=== PATIENT | female | born 1960 | race African-American/Black ===

== ENCOUNTER → 2021-03-23 | Outpatient (CLI) | payer OTHER ==
[2014-09-03 07:58] VITALS: BP 106/75
[~2021-03-23] MED LIST: ACET500T68 PO; HYDR12.575 PO; LOSA100T14 PO; METO-239 PO; MV,C400T2 PO; OLME20TA17 PO; PANT40TA77 PO; RANI150C PO; TRAM50TA PO; VALS40TA2 PO
--- NOTE | 2021-03-23 16:38 | RAD ---
EXAM: Pelvis and left hip, 2 views. HISTORY: Pain. COMPARISON: None. FINDINGS: A frontal view the pelvis and frog-leg view the left hip are obtained. There is no fracture , dislocation or subluxation. The femoral heads are normal in configuration. IMPRESSION: No acute osseous finding. Electronically signed by: Iris Luciano MD (03/23/2021 4:36 PM) [id number]
--- NOTE | 2021-03-26 11:01 | RAD ---
EXAM: Pelvis and left hip, 2 views. HISTORY: Pain. COMPARISON: None. FINDINGS: A frontal view the pelvis and frog-leg view the left hip are obtained. There is no fracture, dislocation or subluxation. The femoral heads are normal in configuration. IMPRESSION: No acute osseous finding. MTDD
== END ==
LOC: PMGORTHO 10:00
PROVIDERS: ATTEND Physician Assistant
DX: M25.552 Pain in left hip (principal)
CPT/HCPCS: 73501

== ENCOUNTER → 2021-04-27 | Outpatient (CLI) | payer BC ==
[2014-09-03 07:58] VITALS: BP 106/75
--- NOTE | 2021-04-27 12:27 | PDOC1 ---
INITIAL PAIN CONSULT DATE OF SERVICE: DOS: DATE: 04/27/21 TIME: 12:21 CHIEF COMPLAINT: Chief Complaint: Low back and left lower extremity pain HISTORY OF PRESENT ILLNESS: 60-year-old female presents with history of pain low back left lower extremity since early 2020 not the result of any specific injury or accident that she is aware of but she has been increased pain in the low back left lower extremity posterior gluteus posterior thigh posterior calf and lateral calf on the left side worse with walking standing changing position specially getting up from seated position and lifting her left leg getting in and out of the car is become more difficult as well patient reports no overt motor loss but significant fatigability of the left lower extremity with these activities. Patient reports it wakes her from sleep least 3-4 times a night does not affect her bowel bladder control or ability to walk when she is up and around she is does fairly well but changing positions and lifting left leg is becoming more more noticeable and more painful patient reports the pain is a sharp shooting change during the day worse with activity better with resting intermittent intensity radiating into the left lower extremity as described. Patient reports that she has had physical therapy in March of this year only 2 sessions which were not helping the pain actually made it somewhat worse also trigger point injections with her primary physician but this has been 11 years ago which were helpful patient reports her disability rating from 0-10 10 being the worst is a 5 responsibilities recreation and sexual behavior for social activity 6 with occupational activity, 2 with self-care and 1 with life support activities. Patient had plain films of the lumbar spine showing degenerative endplate remodeling with the space narrowing and facet arthropathy predominantly at L5- S1. Left hip x-ray shows no acute osseous findings. PAST MEDICAL HISTORY: PMH: Hypertension, esophageal reflux, sickle cell trait PREVIOUS SURGERIES: Past Surgical Hx: Lumbar laminectomy normal hysterectomy, tonsillectomy, left wrist surgery CURRENT MEDICATIONS: Current Meds: Active Scripts Medications Dose Route/Sig Max Daily Dose Days Date Category Tramadol Hcl 50 Mg Tablet 50 Mg PO DAILY PRN 04/27/21 Reported Acetaminophen 500 Mg Tablet 1 Tab PO PRN Q6HRS PRN 15 04/27/21 Reported Hydrochlorothiazide Capsule (Hydrochlorothiazide) 12.5 Mg Capsule 12.5 Mg PO DAILY 04/27/21 Reported Losartan Potassium 100 Mg Tablet 100 Mg PO DAILY 04/27/21 Reported Estroven Max Strength Caplet (Mv,Ca,Min/Fa/Herbal No.157) 400 Mcg Tablet 400 Mcg PO BID 09/03/14 Reported Pantoprazole Sodium (Pantoprazole Sodium) 40 Mg Tablet.dr 40 Mg PO HS 09/03/14 Reported ALLERGIES; Allergies: Coded Allergies: Penicillins (Verified Allergy, Intermediate, 04/27/21) Uncoded Allergies: fruit (Allergy, Intermediate, itching, 04/27/21) seafood (Allergy, Intermediate, Itching, 04/27/21) facial swelling FAMILY HISTORY: Family Hx: No major medical conditions that she is aware of SOCIAL HISTORY: Social Hx: Patient does not cipriano alcohol does not smoke not use any illegal illicit recreational drugs is lives with her spouse lives locally in [facility] REVIEW OF SYSTEMS: ROS: Positive for those items mentioned in history of present illness, all systems are reviewed, otherwise negative ,and are complete full and well-documented on patient's chart. PHYSICAL EXAM: VS: Blood pressure is 134/107 pulse 68 respirations 16 temperature 98.1 F height is 5 feet 2 inches weight is 204 pounds PE: PHYSICAL EXAMINATION: GENERAL: The patient is awake, alert, oriented, appropriate, very pleasant in demeanor. HEENT: Shows normocephalic, atraumatic. Extraocular movements are intact and symmetrical. Oral cavity: Mucous membranes moist and pink. Dentition is intact. NECK: Shows anterior throat supple without palpable lymphadenopathy noted. Swallow reflex symmetrical. CHEST: Shows normal on inspection. Breath sounds are clear bilaterally, no rales rhonchi or wheezes auscultated. HEART: Shows S1, S2 clear. No murmurs auscultated. ABDOMEN: Soft, nontender, nondistended, obese. No palpable organomegaly is noted. BACK: Shows spine grossly in the midline. Normal-appearing cervical lordotic curvature. There is slightly increased thoracic kyphosis, some minor flattening of the lumbar lordotic curvature. Lumbar paraspinous muscles show symmetrical on inspection, on palpation shows some moderate tenderness diffusely throughout the upper, middle and lower distribution of the paraspinous muscles bilaterally and also into the lower thoracic paraspinous musculature, firm and tender, but without specific trigger points, without radiation of pain. The patient has good rotational motion of the lumbar spine, both laterally as well as extension and flexion without significant difficulty. No tenderness over the spinous processes, sacrum or sacroiliac regions. EXTREMITIES: Lower extremities show deep tendon reflexes 2+ in the patellar and tendo calcaneus tendons. Motor exam is 5 on a scale of 5 with right dorsiflexion, extension, quadriceps and hamstring flexion and 5/5 on the left. Peripheral pulses are 1+ posterior tibial. No peripheral edema is noted bilaterally. Lower extremities are warm and dry to touch, equal in color and appearance. Straight leg raise noted to be positive on the left at approximate 45 degrees decreased with knee flexion, right side is negative. Gaenslen's and Rob's maneuvers are negative bilateral as well. The patient is able to stand, stand on her toes without significant difficulty or loss of balance, walks with a normal-appearing gait does not appear to favor the right or left lower extremity significantly is not use any assistive devices to ambulate such as canes or walkers. SKIN: Shows warm and dry, good turgor. No edema. No sores, rashes or bruising throughout. IMPRESSION: Impression: 60-year-old female with approximate 6-month history increasing pain low back left lower extremity radicular fashion Plain films lumbar spine as noted Hypertension Plan: Options were discussed with patient including conservative medical management is continued physical therapies interventional techniques. Patient is wanting to follow most conservative path at this time we will try a Medrol Dosepak patient was given instructions as well as side effects beware with the medication also order MRI scan lumbar spine to better differentiate any pathology that could be explaining the radicular pain not clear from the plain films. Patient will follow up after MRI scan and we will discuss results and proceed at that time. EVER HURST MD Apr 27, 2021 12:27
== END | disposition home or self-care (01) ==
LOC: PNCL 10:21
PROVIDERS: ATTEND Anesthesiology
DX: M54.5 Low back pain (principal); M79.605 Pain in left leg; I10 Essential (primary) hypertension; K21.9 Gastro-esophageal reflux disease without esophagitis; Z90.710 Acquired absence of both cervix and uterus; Z98.890 Other specified postprocedural states; Z79.899 Other long term (current) drug therapy
CPT/HCPCS: G0463

== ENCOUNTER → 2021-05-03 | Outpatient (CLI) | payer BC ==
[2014-09-03 07:58] VITALS: BP 106/75
--- NOTE | 2021-05-03 14:37 | KCIC ---
MR LUMBAR SPINE [id number] History: Reason: LUMBAR RADICULOPATHY / Spl. Instructions: / History: Left hip and leg pain in recen t mths. Prior surgery over 10 yrs ago. Technique: Multiplanar, multi sequential MR imaging was performed of the lumbar spine. Comparison: September 05, 2010 Findings: Normal vertebral body height and alignment. No fracture. Increased or signal within the right L5 pedi debbie. Conus terminates at the normal location. No evidence of nerve root clumping. L1-L2: Minimal disc bulge. No canal or neuroforaminal narrowing. L2-L3: No canal or neuroforaminal narrowing. Mild facet arthropathy. L3-L4: Small disc bulge. Mild facet arthropathy. No canal narrowing. No neuroforaminal narrowing. L4-L5: A based disc bulge. Subacute recess narrowing, right greater than left. Moderate to advanced facet arthropathy. No canal narrowing. Moderate to severe left and mild right neuroforaminal narrowin g. L5-S1: Small disc bulge. Moderate facet arthropathy. No canal narrowing. Mild bilateral neuroforamin al narrowing. When compared the prior examination the degenerative findings are progressed compared to 2009. Impression: 1. Multilevel lumbar spondylosis most prominent L4-L5 with subarticular recess narrowing most promin ent on the right. 2. Neuroforaminal narrowing most prominent left L4-5. 3. Increased signal within the right L5 pedicle, may relate to degenerative changes or stress reacti on. Electronically signed by: Fredi Llanos DO (05/03/2021 2:34 PM) [id number]
== END | disposition home or self-care (01) ==
LOC: KCIC MRI 10:52
PROVIDERS: ATTEND Anesthesiology
DX: M47.26 Other spondylosis with radiculopathy, lumbar region (principal); M48.061 Spinal stenosis, lumbar region without neurogenic claudication; K21.9 Gastro-esophageal reflux disease without esophagitis; F32.9 Major depressive disorder, single episode, unspecified; I10 Essential (primary) hypertension; Z79.899 Other long term (current) drug therapy; Z98.890 Other specified postprocedural states; Z72.89 Other problems related to lifestyle; Z87.891 Personal history of nicotine dependence; Z88.0 Allergy status to penicillin; Z88.8 Allergy status to other drugs, medicaments and biological substances
CPT/HCPCS: 72148

== ENCOUNTER → 2021-05-17 | Outpatient (CLI) | payer BC ==
[2014-09-03 07:58] VITALS: BP 106/75
[~2021-05-17] MED LIST changes: +IOHEXOL 180 MG/ML 10 ML VIAL. ONE; +methylPREDNISolone ACETATE 80 MG/ML VIAL. ONE
--- NOTE | 2021-05-17 15:31 | PDOC ---
Progress Note - Pain Clinic Date of Service: DOS: DATE: 05/17/21 TIME: 15:27 Diagnosis: Dx: Lumbar radiculopathy with lumbar degenerative disc disease and lumbar postlaminectomy syndrome History or Present Illness: HPI: 60-year-old female returns for follow-up status post MRI scan which we discussed with her today with new findings of small disc bulge L3-4 with mild facet arthropathy L4-5 shows a broad-based disc bulge with subacute region recess narrowing right greater than left with moderate to advanced facet arthropathy no canal narrowing but moderate to severe left and mild right neuroforaminal narrowing L5-S1 shows small disc bulge with moderate facet arthropathy without canal narrowing with mild bilateral neuroforaminal narrowing. Comparison made to 2009 shows degenerative findings progressed. Patient reports no significant pain low back and left lower extremity posterior gluteus posterior lateral thigh low anterior thigh anteromedial thigh medial lower leg and lateral lower leg as well as in the calf on the left side patient reports this is worse with walking standing changing positions better with sitting or laying down but is waking her from sleep about once every 2 hours or so patient reports no loss of motor function no bowel or bladder incontinence patient describes pain as aching and dull in the back stabbing and cramping shooting and radiating in the left lower extremity rated as a 7 on scale 10 is worse over the past week for an average 3 its least is a 4 today. Patient had elevated blood pressure after 2 melanie surements today with diastolic over 100 and we discussed the importance of following up with her primary care physician regarding this and she is taking losartan and hydrochlorothiazide and this may be worth a discussion with her primary physician for adjustment oral substitution. Patient understands and agrees. Physical Exam: VS: Blood pressure is 144/106 pulse 79 respirations 18 temperature 98.8 F height 5 feet 2 inches weight is 202 pounds PE: PHYSICAL EXAMINATION: GENERAL: The patient is awake, alert, oriented, appropriate, very pleasant in demeanor HEENT: Shows normocephalic, atraumatic. Extraocular movements are intact and symmetrical. Oral cavity: Mucous membranes moist and pink. Dentition is intact. NECK: Shows anterior throat supple without palpable lymphadenopathy noted. Swallow reflex symmetrical. CHEST: Shows normal on inspection. Breath sounds are clear bilaterally, distant but no rales or rhonchi. HEART: Shows S1, S2 clear. No murmurs auscultated. ABDOMEN: Soft, nontender, nondistended, obese. No palpable organomegaly is noted. BACK: Shows spine grossly in the midline. Normal-appearing cervical lordotic curvature. There is slightly increased thoracic kyphosis, some flattening of the lumbar lordotic curvature with well-healed midline surgical scar noted once again. Lumbar paraspinous muscles show symmetrical on inspection, on palpation shows some moderate tenderness diffusely throughout the upper, middle and lower distribution of the paraspinous muscles without specific trigger points, without radiation of pain. The patient has good rotational motion of the lumbar spine, both laterally as well as extension and flexion without significant difficulty. EXTREMITIES: Lower extremities show deep tendon reflexes 2+ in the patellar and tendo calcaneus tendons. Motor exam is 5 on a scale of 5 with right dorsiflex ion, extension, quadriceps and hamstring flexion and 5/5 on the left. Peripheral pulses are 1 posterior tibial. No peripheral edema is noted bilaterally. Lower extremities are warm and dry to touch, equal in color and appearance. SKIN: Shows warm and dry, good turgor. No edema. No sores, rashes or bruising throughout. Procedure: Procedure: Options discussed with the patient. Patient chart reviews her current medication regimen updated current review of systems updated today as well. We will proceed with a lumbar epidural steroid injection today with fluoroscopic guidance. Risks were discussed including but not limited to: Bleeding, infection, possibility of epidural hematoma and subsequent neurological compromise, dural puncture, headaches, spinal cord and/or nerve damage, side effects of steroid medication, and poor results regarding pain control. Patient understands and wished to proceed. Patient will return to the clinic in approximately 2 weeks for follow-up, was counseled as to return appointment, activity level, and side effects to be aware of. Medication Injected: Med Injected: Procedure is lumbar epidural steroid injection under local anesthetic using sterile prep and drape at the L4-5 level using C-arm fluoroscopic guidance in both AP and lateral views medications injected is 120 mg Depo-Medrol +10mL preservative-free normal saline and 2 mL contrast- condition at discharge is stable patient tolerated procedure well had no complications. Condition at Discharge: Condition at Discharge: Condition at discharge stable, patient already the procedure well and had no complications. EVER HURST MD May 17, 2021 15:31
--- NOTE | 2021-05-17 15:31 | PDOC4 ---
Procedure Note: ICD 10 Code: ICD 10 Code: M54.16 M 96.1 M51.36 Procedure Note: Patient was consented for lumbar epidural steroid injection with fluoroscopic guidance. Risks were discussed including but not limited to: Bleeding, infection, possibility of epidural hematoma and subsequent neurological compromise, dural puncture, headaches, spinal cord and/or nerve damage, side effects of steroid medication, and poor results regarding pain control. Patient understands and wished to proceed. Procedure is lumbar epidural steroid injection under local anesthetic using ster ile prep and drape at the L4-5 level using C-arm fluoroscopic guidance in both AP and lateral views medications injected is 120 mg Depo-Medrol +10mL preservative-free normal saline and 2 mL contrast- condition at discharge is stable patient tolerated procedure well had no complications. EVER HURST MD May 17, 2021 15:31
== END | disposition home or self-care (01) ==
LOC: PNCL 14:15
PROVIDERS: ATTEND Anesthesiology
DX: M51.16 Intervertebral disc disorders with radiculopathy, lumbar region (principal); M96.1 Postlaminectomy syndrome, not elsewhere classified; K21.9 Gastro-esophageal reflux disease without esophagitis; F32.9 Major depressive disorder, single episode, unspecified; Z90.710 Acquired absence of both cervix and uterus; Z98.890 Other specified postprocedural states; Z79.899 Other long term (current) drug therapy; Z88.0 Allergy status to penicillin; Z88.8 Allergy status to other drugs, medicaments and biological substances
CPT/HCPCS: 62323; J1040; Q9965

== ENCOUNTER → 2021-06-29 | Outpatient (CLI) | payer BC ==
[2014-09-03 07:58] VITALS: BP 106/75
[~2021-06-29] MED LIST changes: +methylPREDNISolone ACETATE 40 MG/ML VIAL. ONE
--- NOTE | 2021-06-29 13:34 | PDOC ---
Progress Note - Pain Clinic Date of Service: DOS: DATE: 06/29/21 TIME: 13:31 Diagnosis: Dx: Lumbar radiculopathy with lumbar degenerative disease and lumbar postlaminectomy syndrome History or Present Illness: HPI: 60-year-old female returns for follow-up status post lumbar epidural steroid injection x1. Patient reports about 40% provement after the injection but after about a week or so pain began to return in the low back and left lower extremity in the posterior gluteus posterior lateral thigh lateral anterior thigh an teromedial thigh medial lower leg and into the calf as well on the left side. Patient reports is worse with walking and standing better with sitting or laying down but has been waking from sleep about once a night. She reports does not have any bowel or bladder incontinence does have some fatigability in the left lower extremity patient rates pain as a 6 on scale 10 is worse over the past week 5 on average 3 its least and is a 5 today. He described the pain as aching and sharp radiating on and off in intensity worse with standing walking better with sitting or laying down but again waking from sleep fairly frequently. Physical Exam: VS: Blood pressure is 136/87 pulse 78 respirations 18 temperature 98.4 F weight is 209 pounds. PE: PHYSICAL EXAMINATION: GENERAL: The patient is awake, alert, oriented, appropriate, very pleasant in demeanor HEENT: Shows normocephalic, atraumatic. Extraocular movements are intact and symmetrical. Oral cavity: Mucous membranes moist and pink. Dentition is intact. NECK: Shows anterior throat supple without palpable lymphadenopathy noted. Swallow reflex symmetrical. CHEST: Shows normal on inspection. Breath sounds are clear bilaterally, distant but no rales or rhonchi. HEART: Shows S1, S2 clear. No murmurs auscultated. ABDOMEN: Soft, nontender, nondistended, obese. No palpable organomegaly is noted. BACK: Shows spine grossly in the midline. Normal-appearing cervical lordotic curvature. There is slightly increased thoracic kyphosis, some minor flattening of the lumbar lordotic curvature. Lumbar paraspinous muscles show symmetrical on inspection, on palpation shows some moderate tenderness diffusely throughout the upper, middle and lower distribution of the paraspinous muscles without specific trigger points, without radiation of pain. The patient has good rotational motion of the lumbar spine, both laterally as well as extension and flexion without significant difficulty. EXTREMITIES: Lower extremities show deep tendon reflexes 2+ in the patellar and tendo calcaneus tendons. Motor exam is 5 on a scale of 5 with right dorsiflexion, extension, quadriceps and hamstring flexion and 5/5 on the left. Peripheral pulses are 1 posterior tibial. No peripheral edema is noted b ilaterally. Lower extremities are warm and dry to touch, equal in color and appearance. SKIN: Shows warm and dry, good turgor. No edema. No sores, rashes or bruising throughout. Procedure: Procedure: Options discussed with the patient. Patient chart reviews her current medication regimen updated current review of systems updated today as well. We'll proceed with a lumbar epidural steroid injection today with fluoroscopic guidance. Risks were discussed including but not limited to: Bleeding, infection, possibility of epidural hematoma and subsequent neurological compromise, dural puncture, headaches, spinal cord and/or nerve damage, side effects of steroid medication, and poor results regarding pain control. Patient understands and wished to proceed. Patient will return to the clinic in approximate 2 weeks for follow-up, was counseled as to follow-up appointment, activity level, and side effects to be aware of. Medication Injected: Med Injected: Procedure is lumbar epidural steroid injection under local anesthetic using sterile prep and drape at the L4-5 level using C-arm fluoroscopic guidance in both AP and lateral views medications injected is 120 mg Depo-Medrol +10mL preservative-free normal saline and 2 mL contrast- condition at discharge is stable patient tolerated procedure well had no complications. Condition at Discharge: Condition at Discharge: Condition at discharge stable, patient tolerated seizure well and had no complications. EVER HURST MD Jun 29, 2021 13:34
--- NOTE | 2021-06-29 13:35 | PDOC4 ---
Procedure Note: ICD 10 Code: ICD 10 Code: M54.16 M 96.1 M51.36 Procedure Note: Patient accepted for lumbar epidural injection with fluoroscopic guidance. Risks were discussed including but not limited to: Bleeding, infection, possibility of epidural hematoma and subsequent neurological compromise, dural puncture, headaches, spinal cord and/or nerve damage, side effects of steroid medication, and poor results regarding pain control. Patient understands and wished to proceed. Procedure is lumbar epidural steroid injection under local anesthetic using sterile prep and drape at the L4-5 level using C-arm fluoroscopic guidance in both AP and lateral views medications injected is 120 mg Depo-Medrol +10mL preservative-free normal saline and 2 mL contrast- condition at discharge is stable patient tolerated procedure well had no complications. EVER HURST MD Jun 29, 2021 13:35
== END | disposition home or self-care (01) ==
LOC: PNCL 12:53
PROVIDERS: ATTEND Anesthesiology
DX: M51.16 Intervertebral disc disorders with radiculopathy, lumbar region (principal); M96.1 Postlaminectomy syndrome, not elsewhere classified; K21.9 Gastro-esophageal reflux disease without esophagitis; Z90.710 Acquired absence of both cervix and uterus; Z98.890 Other specified postprocedural states; Z79.899 Other long term (current) drug therapy; Z88.0 Allergy status to penicillin; Z91.013 Allergy to seafood
CPT/HCPCS: 62323; J1030; J1040; Q9965

== ENCOUNTER → 2021-08-16 | Outpatient (CLI) | payer BC ==
[2014-09-03 07:58] VITALS: BP 106/75
[~2021-08-16] MED LIST changes: -IOHEXOL 180 MG/ML 10 ML VIAL. ONE; -methylPREDNISolone ACETATE 40 MG/ML VIAL. ONE; -methylPREDNISolone ACETATE 80 MG/ML VIAL. ONE
--- NOTE | 2021-08-16 10:09 | PDOC ---
Progress Note - Pain Clinic Date of Service: DOS: DATE: 08/16/21 TIME: 10:07 Diagnosis: Dx: Lumbar radiculopathy with lumbar degenerative disc disease and lumbar postlaminectomy syndrome History or Present Illness: HPI: 60-year-old female returns for follow-up status post lumbar epidural steroid injection x2 patient reports about 50% improvement only for about a week the pain returning in the 1st injection was about 40% better the pain is returning fairly significantly in the low back and left leg with difficulty with bending stooping lifting items walking standing patient reports is radiating pain in the left lower extremity posterior gluteus posterior lateral thigh lateral anterior thigh anteromedial thigh medial lower leg to the ankle sharp and shooting and stabbing in quality. Patient rates as a 9 on scale 10 is worse over the past week 8 on average 7 its least and is an 8 today. Patient reports is waking her from sleep about every 3-4 hours as well. Patient reports no bowel or bladder incontinence. Physical Exam: VS: Blood pressure is 160/99 pulse 63 respirations 18 temperature 98.4 F height is 5 feet 3 inches weight is 213 pounds PE: PHYSICAL EXAMINATION: GENERAL: The patient is awake, alert, oriented, appropriate, very pleasant in demeanor HEENT: Shows normocephalic, atraumatic. Extraocular movements are intact and symmetrical. Oral cavity: Mucous membranes moist and pink. Dentition is intact. NECK: Shows anterior throat supple without palpable lymphadenopathy noted. Swallow reflex symmetrical. CHEST: Shows normal on inspection. Breath sounds are clear bilaterally, no rales or rhonchi. HEART: Shows S1, S2 clear. No murmurs auscultated. ABDOMEN: Soft, nontender, nondistended, obese. No palpable organomegaly is noted. BACK: Shows spine grossly in the midline. Normal-appearing cervical curvature. There is increased thoracic kyphosis, some flattening of the lumbar lordotic curvature. Lumbar paraspinous muscles show symmetrical on inspection, on palpation shows some moderate tenderness diffusely throughout the upper, middle and lower distribution of the paraspinous muscles, but without specific trigger points, without radiation of pain. The patient has good rotational motion of the lumbar spine, both laterally as well as extension and flexion without significant difficulty. No tenderness over the spinous processes, sacrum or sacroiliac regions. EXTREMITIES: Lower extremities show deep tendon reflexes 2+ in the patellar and tendo calcaneus tendons. Motor exam is 5 on a scale of 5 with right dorsiflexion, extension, quadriceps and hamstring flexion and 5/5 on the left. Peripheral pulses are 1+ posterior tibial. No peripheral edema is noted bilaterally. Lower extremities are warm and dry. SKIN: Shows warm and dry, good turgor. No edema. No sores, rashes or bruising throughout. Procedure: Procedure: Options were discussed with patient. Patient chart reviews her current medication regimen updated current review of systems updated today as well. We will have her follow-up with her neurosurgeon regarding surgical opinion after lumbar epidural steroid injections x2 with very limited results and persistent L4-5 left-sided radiculopathy patient will follow up after neurosurgical alen luation. Medication Injected: Med Injected: None Condition at Discharge: Condition at Discharge: Condition at discharge is stable. EVER HURST MD Aug 16, 2021 10:09
== END | disposition home or self-care (01) ==
LOC: PNCL 09:12
PROVIDERS: ATTEND Anesthesiology
DX: M51.16 Intervertebral disc disorders with radiculopathy, lumbar region (principal); M96.1 Postlaminectomy syndrome, not elsewhere classified; I10 Essential (primary) hypertension; F32.9 Major depressive disorder, single episode, unspecified; F17.210 Nicotine dependence, cigarettes, uncomplicated; Z98.890 Other specified postprocedural states; Z79.899 Other long term (current) drug therapy
CPT/HCPCS: 99212; G0463

== ENCOUNTER → 2021-10-11 | Outpatient (CLI) | payer BC ==
[2014-09-03 07:58] VITALS: BP 106/75
[~2021-10-11] MED LIST changes: +ACET1TAB33 PO; +AMLO-186 PO; +IBUP-1027 PO
--- NOTE | 2021-10-11 15:47 | EKG ---
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
[2021-10-11 16:00] LABS: BASO % 1 % (0-3); EOS # 0.2 x10^3/uL (0.0-0.7); EOS % 4 % (0-3); HEMATOCRIT 38.4 % (36.0-47.0); HEMOGLOBIN 12.7 g/dL (12.0-15.5); LYMPH # 1.8 x10^3/uL (1.0-4.8); LYMPH % 44 % (24-48); MEAN CORPUSCULAR HEMOGLOBIN 28 pg (25-35); MEAN CORPUSCULAR HGB CONC 33 g/dL (31-37); MEAN CORPUSCULAR VOLUME 85 fL (79-100); MONO # 0.3 x10^3/uL (0.0-1.1); MONO % 8 % (0-9); NEUT # 1.8 x10^3/uL (1.8-7.7); NEUT % 43 % (31-73); PLATELET COUNT 250 x10^3/uL (140-400); RED CELL DISTRIBUTION WIDTH 13.1 % (11.5-14.5); WHITE BLOOD COUNT 4.1 x10^3/uL (4.0-11.0)
[2021-10-11 16:21] LABS: ALBUMIN 4.1 g/dL (3.4-5.0); ALBUMIN/GLOBULIN RATIO 1.1 (1.0-1.7); CALCIUM 9.2 mg/dL (8.5-10.1); CREATININE 0.7 mg/dL (0.6-1.0); TOTAL BILIRUBIN 0.7 mg/dL (0.2-1.0); TOTAL PROTEIN 7.7 g/dL (6.4-8.2)
== END ==
LOC: SURGPAT 13:50
PROVIDERS: ATTEND Neurological Surgery
DX: Z01.818 Encounter for other preprocedural examination (principal); M54.16 Radiculopathy, lumbar region; M48.062 Spinal stenosis, lumbar region with neurogenic claudication
CPT/HCPCS: 36415; 80053; 85025; 87641; 93005

== ENCOUNTER → 2021-10-12 | Outpatient (CLI) | payer BC ==
[2014-09-03 07:58] VITALS: BP 106/75
== END ==
LOC: LAB 13:03
PROVIDERS: ATTEND Neurological Surgery
DX: Z01.812 Encounter for preprocedural laboratory examination (principal); U07.1 COVID-19; M48.062 Spinal stenosis, lumbar region with neurogenic claudication; M54.16 Radiculopathy, lumbar region
CPT/HCPCS: U0003; U0005

== ENCOUNTER 2021-11-26 07:12 | Day surgery (SDC) | payer BC ==
[2021-10-13 10:55] VITALS: BP 134/86
--- NOTE | 2021-10-28 10:41 | PREOP HP ---
DATE OF SERVICE: 11/18/2021 DATE OF ADMISSION: 11/18/2021 HISTORY OF PRESENT ILLNESS: The patient is a pleasant 60-year-old who underwent lumbar surgery in 2009 and did very well. She reports that in 01/2021, she developed low back pain along with pain in her left hip and left lateral thigh and leg. She said that problem has slowly worsened and can reach 9/10. The pain is constant. It is difficult for her to lie down to sleep. Changing positions frequently can help her. She is taking Tylenol No. 3 and ibuprofen. Epidural steroid injections only helped her minimally. She says that she does lots of lifting, which may be associated with her pain. CURRENT MEDICATIONS: Amlodipine, losartan, hydrochlorothiazide, Tylenol No. 3, ibuprofen, pantoprazole. PAST MEDICAL HISTORY: Hypertension. PAST SURGICAL HISTORY: Lumbar surgery in 2009, hysterectomy, hand and wrist surgery. FAMILY HISTORY: Alzheimer's disease, cancer, diabetes, hypertension. 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 . Does not smoke. Previously smoked a half pack per day for 40 years. Drinks alcohol 1-2 times per year. ALLERGIES: SHELLFISH AND PENICILLIN. REVIEW OF SYSTEMS: A 12-point review of system was performed and is noncontributory except that mentioned above. PHYSICAL EXAMINATION: GENERAL: Alert, pleasant, in no acute distress. HEENT: Head is normocephalic, atraumatic. SKIN: Warm and dry. Well-healed lumbar incision. MUSCULOSKELETAL: Lumbar paraspinal muscle bulk is normal, [id number] tenderness of the lower lumbar spine with palpation, normal range of motion of the lower extremities bilaterally. EXTREMITIES: No clubbing, cyanosis or edema. NEUROLOGIC: Alert and oriented x3. Strength is 5/5 in the lower extremities bilaterally. Sensory was intact to light touch in the lower extremities except for a decrease involving the left foot diffusely. Reflexes were present and symmetric in the lower extremities bilaterally. Positive straight leg raising on the left, negative straight leg raising on the right, normal gait. IMAGING: I reviewed her lumbar MRI scan from 04/2021. On that study, the principal abnormalities are at L4-5 where there are severe foraminal narrowing and moderately severe left-sided lateral recess narrowing. ASSESSMENT AND PLAN: The patient has a very severe radiculopathy, which is related to the lateral recess and foraminal narrowing at L4-5 on the left. I recommended lumbar microsurgery for this. She has failed conservative measures. I discussed with her the surgery, the risk and the expected postoperative course. She understands very well and would like to proceed. KRUNAL/CAYLA/YOLANDA DR: Daria TID: [id number] JAMISON
[2021-11-10 14:34] VITALS: BP 134/86
[~2021-11-26] VITALS: Ht 160 cm; Wt 97.2 kg
[~2021-11-26 07:12] MED LIST changes: +BUPIVACAINE-EPI 0.5% 30 ML VIAL KIT. ONE; +DEXAMETHASONE SOD PHOS 4 MG/ML VIAL ONE; +GELATIN SPONGE SIZE 100. ONE; +GLYCOPYRROLATE 1 MG/5 ML VIAL. ONE; +HYDROmorphone 2 MG/ML INJ. IVP PRN; +IV RINGERS,LACTATED 1000ML 1,000 ML IV SCH; +KETOROLAC 60 MG/2 ML VIAL. ONE; +LIDOCAINE 2% PF 5 ML VIAL. ONE; +MORPHINE SULFATE 2 MG/ML INJ. IVP PRN; +ONDANSETRON PF 4 MG/2 ML VIAL. ONE; +PHENYLEPHRINE in 0.9% NACL PF 1 MG/10 ML SYRINGE. IV ONE; +PROCHLORPERAZINE 10 MG/2 ML VIAL. IVP PRN; +PROPOFOL 10 MG/ML (20ML) VIAL. IV ONE; +PROPOFOL 50 ML IV ONE; +REMIFENTANIL 2 MG VIAL. IV ONE; +ROCURONIUM 50 MG/5 ML VIAL. ONE; +SCOPOLAMINE 1.5MG PATCH. TD ONE; +SUCCINYLCHOLINE 200 MG/10 ML VIAL. ONE; +THROMBIN TOPICAL 20,000 UNIT SPRAY.SYRN KIT TP ONE; +VANCOMYCIN 1 GM in IV NORMAL SALINE 1000ML BAG 1,000 ML IRR ONE; +VANCOMYCIN 1 GM in IV NORMAL SALINE 250ML 250 ML IV PRN; +ceFAZolin SODIUM 1 GM in IV NORMAL SALINE 1000ML BAG 1,000 ML IRR ONE; +ePHEDrine PF IN SALINE 50 MG/10 ML SYRINGE. IV ONE; +fentaNYL PF VIAL 100 MCG/2 ML VIAL IVP PRN; +fentaNYL PF VIAL 100 MCG/2 ML VIAL ONE
[2021-11-26] MEDS ORDERED: PHENYLEPHRINE 10 MG/ML VIAL. ONE (07:15)
[2021-11-26] MEDS ORDERED: NEOSTIGMINE METHYLSULFATE 5 MG/5 ML SYRINGE. ONE (08:09)
[2021-11-26] MEDS ORDERED: DESFLURANE > 120 MINUTES IH ONE (09:04)
[2021-11-26] MEDS ORDERED: REMIFENTANIL 1 MG VIAL. IV ONE (09:40)
[2021-11-26] MEDS ORDERED: PROPOFOL 50 ML IV ONE ×2 (09:49)
[2021-11-26] MEDS ORDERED: MORPHINE SULFATE 2 MG/ML INJ. ONE (12:38)
[2021-11-26] MEDS ORDERED: fentaNYL PF VIAL 100 MCG/2 ML VIAL ONE (12:38)
[2021-11-26] MEDS: fentaNYL PF VIAL 100 MCG/2 ML VIAL IVP PRN ×2 (12:38→12:46)
[2021-11-26] MEDS: MORPHINE SULFATE 2 MG/ML INJ. IVP PRN ×2 (12:40→12:50)
[2021-11-26] MEDS ORDERED: METH-562 PO (12:40)
[2021-11-26] MEDS ORDERED: HYDR-2761 PO (12:40)
--- NOTE | 2021-11-26 12:42 | DISCH ---
DISCHARGE INSTRUCTIONS Condition on Discharge Condition on Discharge: Stable Activity After Discharge Activity Instructions for Disc: Activity as tolerated, Avoid exertion Other activity instructions: no driving for a week Bathing Instructions: Shower-keep dressing dry, No Tub Bath until see Lifting Instructions after Dis: No heavy lifting, No pulling or pushing, Do not lift >10 pounds Diet after Discharge Additional Diet Restrictions: resume home diet Wound Incision Care Wound/Incision Care: Ice to area for comfort Other wound/incision instructi: may remove dressing in 48 hours if dry then may shower, no soaking Contacting the after DC Call your doctor for: Concerns you may have Follow-Up Follow up with: Dr. Vasquez's nurse in 2 weeks [phone] ROSALBA VASQUEZ MD Nov 26, 2021 12:42
[2021-11-26] MEDS ORDERED: NEOMY/BACITR/POLYMYXIN OINT PACKET. TP ONE (13:00)
[2021-11-26] MEDS ORDERED: HYDROcodone/APAP 5/325MG 1 TAB TABLET PO ONE (13:15)
[2021-11-26] MEDS ORDERED: KETOROLAC 30 MG/ML VIAL. ONE (14:07)
[2021-11-26 14:30] VITALS: BP 110/64
[2021-11-26] MEDS ORDERED: KETOROLAC 30 MG/ML VIAL. IVP ONE (14:45)
--- NOTE | 2021-11-26 21:44 | OP ---
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 POSTOPERATIVE DIAGNOSES: Foraminal stenosis with lateral recess narrowing and herniated nucleus pulposus, L4-5, left. OPERATIONS PERFORMED: Transforaminal microdecompression, hemilaminotomy and removal of herniated lumbar disc, L4-5, left. This is a reoperation. The operation was done with fluoroscopy, microscopic dissection, multimodality monitoring including EMG and SSEP. SURGEON: Krzysztof Robin M.D. REHABILITATION SERVICES DIRECTOR: LUISA Miller; assisted with the surgery. She assisted with the exposure, the microdecompression and discectomy as well as the closure. OPERATIVE INDICATIONS: The patient is a very pleasant 61-year-old who developed problems with intractable back and left leg pain, which failed conservative measures. In the past, she has had lumbar microsurgery at L4-5 on the left. On imaging studies, there was a fairly significant foraminal narrowing at this level on the left at L4-5 along with a medial scar and I felt that the nerve was being compressed in this location and that she should undergo reoperation. I discussed the surgery, the risks, the technique and expected postoperative course, and she wished to go ahead. DESCRIPTION OF PROCEDURE: Following general endotracheal anesthesia, the patient was positioned prone on the Familia table. Lumbar region prepped and draped in standard fashion. HEIDY hose and AV impulse boots were applied for DVT prophylaxis. A microscope was draped, fluoroscopy was draped and brought into the field. Monitoring was established. Ancef 2 grams given less than one hour prior to initiation of surgery. Using fluoroscopic guidance, a midline incision was made incorporating part of her old incision. I dissected down through skin and subcutaneous tissue. I reflected the paraspinal muscles and I worked gently down through considerable scarring and exposed the L4-5 region on the left. I placed a [place] microdisk retractor, brought in the microscope and the remainder of the surgery was done with a microscope using microscopic technique. I brought in the high speed air drill after I used a curette to remove scar and drilled a generous laminotomy and enlarged this with a 2.5 and 4 mm [place] rongeurs. I worked superiorly to the inferior aspect of the pedicle of L4. I then followed the L4 root out laterally, decompressing the foramen along the inferior aspect of the root. There was considerable thickening and I worked through scar and exposed this area more carefully. I did go back and enlarged a partial foraminotomy further. Again, there was considerable scarring and I gently worked through this region and retracted the root and I found a disc fragment in the proximal foramen compressing the L4 root and potentially the L5 root to a degree. I removed this and the whole area became very well decompressed. I irrigated with antibiotic solution carefully. The root was under no longer under pressure.I irrigated with antibiotic solution. I gently reexplored and found no evidence of any retained fragments. I removed the retractor. I obtained hemostasis in the muscle, which was excellent. I irrigated again copiously and I closed the wound in layers with absorbable suture. The skin was closed with a 4-0 subcuticular stitch. I felt the surgery went very well. OBEY DR: Jim TID: [id number] JAMISON
--- NOTE | 2021-11-30 17:07 | PATHOLOGY ---
[facility] Accession Number: [id number] . 01 Material submitted: . vertebral column - LUMBAR DECOMPRESSION . 01 Clinical history: . LUMBAR STENOSIS, RADICULOPATHY LUMBAR MICRODECOMPRESSION L4-5 . 02 Diagnosis: Segments of fibrocartilaginous, fibroadipose, and skeletal muscle tissue and bone, lumbar decompression: - Degenerative changes of fibrocartilaginous tissue. (JP:[facility]; 11/30/2021) [facility] 11/30/2021 0927 Local . 02 Comment: There is no evidence of an acute inflammatory process or malignancy. (JPM:pit; 11/30/2021) . . . 02 Electronically signed: . Nayan Francois MD, Pathologist NPI- [id number] . 01 Gross description: . Received in formalin labeled "Kamryn Ames, lumbar decompression" are multiple fragments of sapp-brown rubbery and gritty soft tissue and sapp-white bone, measuring in aggregate 2.8 x 2.5 x 0.4 cm. The entire specimen is submitted in cassette A1 following decalcification. ([facility] [place]; 11/27/2021) [facility] 11/30/2021 0925 Local . 02 Pathologist provided ICD-10: M51.36 . 02 CPT . 131298, [id number] Specimen Comment: A courtesy copy of this report has been sent to [phone] Specimen Comment: [id number] Specimen Comment: Report sent to / DR MCBRIDE Specimen Comment: A duplicate report has been generated due to demographic updates. Performed at: [address], [place], [place] [id number] MD Yonny Workman MD Phone: [phone] Performed at: [id number] [place], [place] [id number] MD Nayan Francois MD Phone: [phone]
== END 2021-11-26 14:40 | disposition home or self-care (01) ==
LOC: SURG 07:12
PROVIDERS: ATTEND Neurological Surgery
DX: M48.062 Spinal stenosis, lumbar region with neurogenic claudication (principal); M54.16 Radiculopathy, lumbar region; I10 Essential (primary) hypertension; K21.9 Gastro-esophageal reflux disease without esophagitis; F32.9 Major depressive disorder, single episode, unspecified; Z90.710 Acquired absence of both cervix and uterus; Z98.890 Other specified postprocedural states; Z79.899 Other long term (current) drug therapy; Z72.89 Other problems related to lifestyle; Z88.0 Allergy status to penicillin; Z91.013 Allergy to seafood; Z88.8 Allergy status to other drugs, medicaments and biological substances
CPT/HCPCS: 63047; 88304; 88311; 97116; 97162; 97530; A4213; A4364; A4930; A6254; A6258; J0330; J0690; J1100; J1885; J2270; J2370; J2405; J2704; J2710; J3010; J3490; J7030; 76000; A4657; J3370